=== PATIENT | female | born 1985 | race Hispanic/Latino ===

== ENCOUNTER 2017-05-25 10:40 | Emergency (ER) | payer SELFPAY ==
[2017-05-25 11:40] LABS: Bilirubin Negative (Negative); Blood, Urine Negative (Negative); Glucose, Urine (Dipstick) Negative (Negative); Ketone, Urine Negative (Negative); Nitrite Negative (Negative); Protein, Urine (Dipstick) Negative (Neg-Trace); Urobilinogen 0.2 mg/dL (0.2-1.0)
[2017-05-25 11:42] LABS: Bacteria/HPF 3+ HPF (None Seen); Hyaline Casts/LPF 0-3 HYALINE CAST LPF (0-3 Hyaline); RBC/HPF 0-3 HPF (0-3); WBC/HPF 0-3 HPF (0-3)
[2017-05-25 11:57] LABS: #Basophils 0.1 thou/uL (0.0-0.2); #Eosinphils 0.2 thou/uL (0.0-0.7); #Lymphocytes 2.8 thou/uL (1.20-3.40); #Monocytes 0.8 thou/uL (0.11-0.59); #Neutrophils 6.2 thou/uL (1.40-6.50); %Eosinophils 2.3 % (0.0-10.0); %Lymphocytes 27.6 % (21.0-51.0); %Monocytes 8.2 % (0.0-10.0); Hematocrit 44.6 % (36.0-47.0); Mean Platelet Volume 7.8 fL (7.4-10.4); Red Blood Cell (RBC) Count 4.69 mill/uL (4.20-5.40); White Blood Cell (WBC) Count 10.2 thou/uL (4.8-10.8)
[2017-05-25 12:25] LABS: ALT (SGPT) 22 U/L (8-55); AST (SGOT) 16 U/L (5-34); Alkaline Phosphatase 74 U/L (40-150); Anion Gap 10 mmol/L (10-20); BUN (Urea Nitrogen) 13 mg/dL (7.0-18.7); Bilirubin, Total 0.4 mg/dL (0.2-1.2); Calc. Creatinine Clearance 0 mL/min (70-130); Calcium 9.9 mg/dL (7.8-10.44); Carbon Dioxide 27 mmol/L (22-29); Chloride 102 mmol/L (98-107); Estimated GFR-MDRD Greater than 90; Globulin 3.2 g/dL (2.4-3.5); Lipase 17 U/L (8-78); Protein, Total 7.3 g/dL (6.0-8.3)
--- NOTE | 2017-05-25 14:49 | ULT ---
PELVIC SONOGRAM TRANSABDOMINAL AND TRANSVAGINAL IMAGING DUPLEX EVALUATION: History: Pelvic pain. FINDINGS: Urinary bladder is decompressed. The uterus has a heterogeneous echotexture and is 8.9 cm in length. Within the endometrial cavity, a tiny cystic structure is 0.7 cm diameter, correlating with 5 weeks 3 days size as a gestation. pole and yolk sac are not visible. Minimal free fluid is present within the cul-de-sac. The right ovary is 3.9 cm in length and has a n ormal appearance with good color and spectral doppler flow. Left ovary is not well visualized. IMPRESSION: Tiny cystic structure within the endometrial cavity could represent a very early gestation. No other significant abnormalities are apparent. Please consider close continued clinical and sonographic fo llow up. POS: LEE
== END 2017-05-25 15:34 | disposition home or self-care (01) ==
LOC: ERS 10:40
DX: O99.89 Other specified diseases and conditions complicating pregnancy, childbirth and the puerperium (principal); R10.32 Left lower quadrant pain; W10.9XXA Fall (on) (from) unspecified stairs and steps, initial encounter
CPT/HCPCS: 36415; 76856; 80053; 81003; 81015; 81025; 83690; 84702; 85025

== ENCOUNTER 2019-03-17 13:47 | Day surgery (SDC) | payer OTHER ==
--- NOTE | 2019-03-17 11:33 | RAD ---
XR Ankle Lt 3 View STANDARD INDICATION: Fall with ankle pain COMPARISON: None. FINDINGS: Bones: Intact. Ankle mortise: Symmetric. Talar Dome: Intact. Subtalar joint: Normal. Visualized hindfoot: Normal. Periarticular soft tissues: There is soft tissue swelling overlying the lateral aspect of the left an kle IMPRESSION: 1. No acute fracture or subluxation demonstrated. Soft tissue swelling of the lateral left ankle.
[2019-03-17 13:58] VITALS: BMI 36.6
[2019-03-17] MEDS ORDERED: Butorphanol Tartrate 1 MG/ML VIAL SLOW IVP PRN (14:23)
[2019-03-17] MEDS ORDERED: Ondansetron PF 4 MG/2 ML Vial IVP PRN (14:23)
[2019-03-17] MEDS ORDERED: hydrALAZINE 20 MG/ML VIAL SLOW IVP PRN (14:23)
[2019-03-17] MEDS ORDERED: Promethazine HCl 25 MG/ML VIAL IM PRN (14:23)
--- NOTE | 2019-03-17 14:29 | PDOC.LDHP ---
Labor and Delivery H&P Chief complaint: other HPI: 33 yo @ 36w5d by PEYTON of 04/09/19 who presents after fall. Pt was walking down stairs and was holding her baby when she slipped and fell. Her mother was with her and reports that she fell on her abdomen. Pt denies any abdominal pain. Reports some leonor funes ctx. Denies any LOF/VB. She has h/o CS x1 @ 31 weeks due to PPROM with distress. Pt has planned RCS @ 39 weeks. Pt is followed by Dr. Diaz. Current gestational age (weeks): 36 Due date: 04/09/19 Dating criteria: other (PEY[facility] per records) Grav: 5 Para: 4 OB History Details: 3 term SVDs 1 CS twins (one passed) Current complications: none Abnormal US findings: No Past Medical History: Denies Current medications: pre- vitamins Previous surgical history: low tranverse CS Allergies/Adverse Reactions: Allergies Allergy/AdvReac Type Severity Reaction Status Date / Time No Known Allergies Allergy Verified 03/17/19 13:53 Social history: none - Physical Exam Vital signs reviewed and normal: yes General: NAD Heart: RRR Lungs: nonlabored breathing Abdomen: gravid Extremeties: no edema FHT: category 1 [place] contractions every: no ctx noted - Vaginal Exam cm dilated: 1 (cephalic ) Effacement: 0% Station: -3 - OB Labs Blood type: O RH: positive Antibody Screen: negative HIV: negative RPR: negative HEPSAg: negative 1 hour GCT: positive 3 hour GTT: wnl GBS: negative Urine drug screen: not done Rubella: immune - Assessment 36w5d IUP Fall CS x1 - Plan Plan: observation in L&D, informed consent obtained -: CBC, coags, fibrinogen and US ordered. Keep in observation at this time Keep NPO. Plan for d/c home if stable in 4 hours.
[2019-03-17] MEDS ORDERED: Lactated Ringer's 1,000 ML IV SCH (14:30)
--- NOTE | 2019-03-17 15:03 | ULT ---
Limited obstetrical ultrasound for biophysical profile INDICATION: 37 week status post fall FINDINGS: There is single live intrauterine gestation in vertex presentation. Cardiac activity is not ed at 150 bpm. The tone is 2 out of 2, breathing is 2 out of 2, movement is 2 out of 2, amniotic f luid levels to 2. The placenta is on the right aspect of the fundus without evidence of previa. IMPRESSION: Biophysical profile of 8 out of 8
[2019-03-17] MEDS ORDERED: Acetaminophen 500 MG TAB PO SCH (15:15)
[2019-03-17 15:16] LABS: Hemoglobin 13.3 g/dL (12.0-16.0); Mean Corpuscular HGB CONC 34.7 g/dL (32.0-36.0); Mean Corpuscular Hemoglobin 30.5 pg (27.0-31.0); Mean Corpuscular Volume 88.1 fL (78.0-98.0); Mean Platelet Volume 8.8 fL (7.4-10.4); Platelet Count 236 thou/uL (130-400); Red Blood Cell (RBC) Count 4.35 mill/uL (4.20-5.40); White Blood Cell (WBC) Count 11.2 thou/uL (4.8-10.8)
[2019-03-17 15:25] LABS: Prothrombin Time 13.3 SEC (12.0-14.7)
[2019-03-17 15:26] LABS: PTT 30.3 SEC (22.9-36.1)
[2019-03-17 15:54] LABS: Syphilis Antibody Nonreactive (Nonreactive); Syphilis Antibody Index 0.05 S/CO (<1.00 Non-Reactive)
[2019-03-17 15:55] LABS: HBSAg Index 0.32 S/CO (0-0.99); HIV (1/2) Antibody/Antigen Non-Reactive (NonReactive); HIV 1/2 INDEX 0.08 S/CO (<1.00); Hep B Surf Ag Non-Reactive S/CO (NonReactive)
--- NOTE | 2019-03-17 15:58 | PDOC.EVN ---
Event Note - Event Note Event Note: Abruption labs wnl (KB pending), rh pos. BPP 03/29 Continue observation to complete 4 hrs and plan for d/c if stable.
[2019-03-17 16:49] LABS: Amnisure Internal Control QC ACCEPTABLE (ACCEPTABLE); Amnisure Test No Membranes Rupture (No Rupture)
--- NOTE | 2019-03-17 18:26 | PDOC.EVN ---
Event Note - Event Note Event Note: Pt doing well. Minimal ctx. Thought possible ROM, however, exam and amnisure negative. Noted to be urine. FHTs cat 1 5 hrs cont. monitoring. Labs wnl. KB send out and still pending. ED warnings reviewed. D/C home, f/u with Dr. Diaz
== END 2019-03-17 18:37 | disposition home health service (06) ==
LOC: L&D/OP 13:47 → EDSTATUS 13:50 → L&D/OP 18:37
PROVIDERS: ATTEND Obstetrics & Gynecology
DX: O9A.213 Injury, poisoning and certain other consequences of external causes complicating pregnancy, third trimester (principal); S93.402A Sprain of unspecified ligament of left ankle, initial encounter; S90.511A Abrasion, right ankle, initial encounter; Z3A.36 36 weeks gestation of pregnancy; W10.8XXA Fall (on) (from) other stairs and steps, initial encounter
CPT/HCPCS: 36415; 76819; 84112; 85027; 85384; 85460; 85610; 85730; 86780; 86850; 86900; 86901; 87340; 87389; 99284

== ENCOUNTER 2019-04-02 08:59 | Inpatient (IN) | payer OTHER ==
[2019-04-02 09:55] VITALS: BMI 37.2
[2019-04-02] MEDS ORDERED: hydrALAZINE 20 MG/ML VIAL SLOW IVP PRN ×2 (10:14→15:38)
[2019-04-02] MEDS ORDERED: Ondansetron PF 4 MG/2 ML Vial IVP PRN ×2 (10:14→13:07)
[2019-04-02] MEDS ORDERED: Promethazine HCl 25 MG/ML VIAL IM PRN ×2 (10:14→13:07)
[2019-04-02] MEDS ORDERED: CEFAZOLIN 2 GM, Admixture Fee 1 EACH in Sodium Chloride 0.9% 100 ML IVPB SCH (10:15)
[2019-04-02] MEDS ORDERED: Lactated Ringer's 1,000 ML IV SCH (10:15)
--- NOTE | 2019-04-02 10:18 | PDOC.LDHP ---
Labor and Delivery H&P HPI: 33 y/o for repeat 2nd today at 39 and 1/7 weeks. Current gestational age (weeks): 39 Due date: 04/09/19 Grav: 5 Para: 4 Current complications: none Abnormal US findings: No Current medications: pre- vitamins Previous surgical history: low tranverse CS Allergies/Adverse Reactions: Allergies Allergy/AdvReac Type Severity Reaction Status Date / Time No Known Allergies Allergy Verified 03/17/19 13:53 Social history: none - Physical Exam Vital signs reviewed and normal: yes General: NAD Heart: RRR Lungs: CTAB Abdomen: gravid Extremeties: no edema FHT: category 1 - Assessment L&D Assessment: scheduled repeat section - Plan Plan: admit to L&D, to OR for section
[2019-04-02 10:29] LABS: Hemoglobin 12.5 g/dL (12.0-16.0); Mean Corpuscular HGB CONC 32.3 g/dL (32.0-36.0); Mean Corpuscular Hemoglobin 28.4 pg (27.0-31.0); Mean Corpuscular Volume 87.8 fL (78.0-98.0); Mean Platelet Volume 9.3 fL (7.4-10.4); Platelet Count 230 thou/uL (130-400); RBC Distribution Width 13.9 % (11.5-14.5); Red Blood Cell (RBC) Count 4.41 mill/uL (4.20-5.40); White Blood Cell (WBC) Count 8.5 thou/uL (4.8-10.8)
[2019-04-02] MEDS: Bicitra 30 ML UDCUP PO SCH ×2 (11:13→11:49)
[2019-04-02 11:16] LABS: HBSAg Index 0.46 S/CO (0-0.99); Hep B Surf Ag Non-Reactive S/CO (NonReactive); Syphilis Antibody Nonreactive (Nonreactive); Syphilis Antibody Index 0.05 S/CO (<1.00 Non-Reactive)
[2019-04-02] MEDS ORDERED: MORPHINE 5 MG/10 ML PF VIAL ONE (11:54)
[2019-04-02] MEDS ORDERED: Fentanyl 100 MCG/2 ML VIAL ONE (11:54)
[2019-04-02] MEDS ORDERED: Phenylephrine HCL 10 MG/ML VIAL ONE (11:55)
[2019-04-02] MEDS ORDERED: Oxytocin 10 UNITS/ML VIAL ONE (11:55)
[2019-04-02] MEDS ORDERED: Ketorolac Tromethamine 30 MG/ML VIAL ONE (11:55)
[2019-04-02] MEDS ORDERED: ePHEDrine/0.9% NaCl/PF SYRINGE 50 mg/10 ml ONE (11:55)
[2019-04-02] MEDS ORDERED: Ondansetron PF 4 MG/2 ML Vial ONE (11:55)
[2019-04-02] MEDS ORDERED: Dexamethasone 4 mg/ml Vial ONE (12:50)
[2019-04-02] MEDS ORDERED: Naloxone HCl 0.4 mg/ml Vial IVP PRN ×2 (13:07)
[2019-04-02] MEDS ORDERED: Promethazine HCl 25 MG SUPP PR PRN (13:07)
[2019-04-02] MEDS ORDERED: Ondansetron HCl/PF 4 MG/2 ML Vial IVP PRN (13:07)
[2019-04-02] MEDS ORDERED: L&D-Morphine 4 MG/ML VIAL SLOW IVP PRN (13:07)
[2019-04-02] MEDS ORDERED: HYDROmorphone 2 MG/ML VIAL SLOW IVP PRN (13:07)
[2019-04-02] MEDS ORDERED: Ketorolac Tromethamine 30 MG/ML VIAL IVP PRN (13:07)
[2019-04-02] MEDS ORDERED: diphenhydrAMINE 50 MG/ML VIAL IVP PRN (13:07)
[2019-04-02] MEDS ORDERED: Naloxone HCl 0.4 mg/ml Vial IV PRN (13:07)
[2019-04-02] MEDS ORDERED: Meperidine HCl/PF 25 MG/ML VIAL SLOW IVP PRN (13:07)
[2019-04-02] MEDS ORDERED: Communication Order-Pharmacy FS SCH (13:15)
[2019-04-02] MEDS ORDERED: Lanolin Ointment 7 GM TUBE TOP PRN (15:38)
[2019-04-02] MEDS ORDERED: Adacel (T-DAP) 0.5 ML SYRINGE IM ONE (15:38)
[2019-04-02] MEDS ORDERED: Varicella virus, LIVE 0.5 ML VIAL SC ONE (15:38)
[2019-04-02] MEDS ORDERED: diphenhydrAMINE 25 MG CAP PO PRN (15:38)
[2019-04-02] MEDS ORDERED: Simethicone Chewable 80 MG TAB PO PRN (15:38)
[2019-04-02] MEDS ORDERED: NS / Oxytocin 40 units/1000ml 1,000 ML IV SCH (15:38)
[2019-04-02] MEDS ORDERED: Measles/Mumps/Rubella 10 MCG/0.5 ML VIAL SC ONE (15:38)
[2019-04-02] MEDS: Docusate Calcium (SURFAK) 240 MG CAP PO SCH (21:36)
[2019-04-02] MEDS: Ferrous Sulfate 325 MG TAB PO SCH (21:41)
[2019-04-03] MEDS ORDERED: HYDROcodone/Acetaminophen 5/325 mg Tablet PO PRN ×2 (01:15)
[2019-04-03 05:32] LABS: Hemoglobin 11.6 g/dL (12.0-16.0); Mean Corpuscular HGB CONC 33.3 g/dL (32.0-36.0); Mean Corpuscular Hemoglobin 29.7 pg (27.0-31.0); Mean Corpuscular Volume 89.4 fL (78.0-98.0); Mean Platelet Volume 9.1 fL (7.4-10.4); Platelet Count 204 thou/uL (130-400); RBC Distribution Width 13.9 % (11.5-14.5); Red Blood Cell (RBC) Count 3.91 mill/uL (4.20-5.40); White Blood Cell (WBC) Count 11.7 thou/uL (4.8-10.8)
[2019-04-03] MEDS ORDERED: Sodium Chloride 0.9% 10 ML ONE (07:41)
[2019-04-03] MEDS: Prenatal Vitamin 1 TAB PO SCH (09:05)
[2019-04-03] MEDS: Docusate Calcium (SURFAK) 240 MG CAP PO SCH ×2 (09:06→21:16)
[2019-04-03] MEDS: Ferrous Sulfate 325 MG TAB PO SCH ×2 (09:41→23:28)
[2019-04-03] MEDS: Ibuprofen 800 MG TAB PO SCH ×2 (14:05→21:16)
--- NOTE | 2019-04-03 14:34 | PDOC.PP ---
Post Progress Note Post Day #: 1 PO intake tolerated: yes Flatus: yes Ambulation: yes Vital Signs (12 hours) Temp Pulse Resp BP Pulse Ox 04/03/19 12:59 98.1 F 66 20 99/57 L 04/03/19 08:13 98.4 F 63 20 97/55 L 99 04/03/19 05:45 97.9 F 65 16 105/55 L Weight Weight 197 lb - Physical Examination General: NAD Cardiovascular: no m/r/g, RRR Respiratory: clear to auscultation bilaterally, non-labored breathing Abdominal: + bowel sounds, lochia, no distention, appropriately TTP Extremities: negative homans (B) Skin: CS incision dry & intact, no rash Neurological: no gross focal deficits Psychiatric: A&Ox3, normal affect Result Diagrams: 04/03/19 05:22 Additional Labs: Post Labs Blood Type O POSITIVE 04/02/19 09:56 Hep Bs Antigen Non-Reactive S/CO (NonReactive) 04/02/19 09:56
[2019-04-04] MEDS: Ibuprofen 800 MG TAB PO SCH ×3 (05:45→21:25)
[2019-04-04] MEDS: Ferrous Sulfate 325 MG TAB PO SCH ×2 (07:30→21:26)
[2019-04-04] MEDS: Prenatal Vitamin 1 TAB PO SCH (09:04)
[2019-04-04] MEDS: Docusate Calcium (SURFAK) 240 MG CAP PO SCH ×2 (09:04→21:25)
--- NOTE | 2019-04-04 13:32 | PDOC.PP ---
Post Progress Note Post Day #: 2 PO intake tolerated: yes Flatus: yes Ambulation: yes Vital Signs (12 hours) Temp Pulse Resp BP Pulse Ox 04/04/19 11:51 98.0 F 83 20 137/97 H 04/04/19 08:22 97.7 F 62 20 109/76 97 Weight Weight 197 lb - Physical Examination General: NAD Cardiovascular: no m/r/g, RRR Respiratory: clear to auscultation bilaterally, non-labored breathing Abdominal: + bowel sounds, lochia, no distention Extremities: negative homans (B) Skin: CS incision dry & intact, no rash Neurological: no gross focal deficits Psychiatric: A&Ox3, normal affect Result Diagrams: 04/03/19 05:22 Additional Labs: Post Labs Blood Type O POSITIVE 04/02/19 09:56 Hep Bs Antigen Non-Reactive S/CO (NonReactive) 04/02/19 09:56
[2019-04-05] MEDS: Ibuprofen 800 MG TAB PO SCH (05:23)
[2019-04-05 08:24] VITALS: BP 130/80; TEMP 98.3
[2019-04-05] MEDS: Ferrous Sulfate 325 MG TAB PO SCH (09:11)
[2019-04-05] MEDS: Prenatal Vitamin 1 TAB PO SCH (09:40)
[2019-04-05] MEDS: Docusate Calcium (SURFAK) 240 MG CAP PO SCH (09:40)
== END 2019-04-05 13:10 | disposition home or self-care (01) | DRG 788 ==
LOC: L&D 08:59 → 3SW 15:52
PROVIDERS: ADMIT Obstetrics & Gynecology; ATTEND Obstetrics & Gynecology
PROC: 10D00Z1 Extraction of Products of Conception, Low, Open Approach (ICD-10-PCS; principal; 2019-04-02)
DX: O34.211 Maternal care for low transverse scar from previous cesarean delivery (principal); O77.0 Labor and delivery complicated by meconium in amniotic fluid; Z3A.39 39 weeks gestation of pregnancy; Z37.0 Single live birth
CPT/HCPCS: 36415; 51702; 85027; 86780; 86850; 86900; 86901; 87340; 90715; 90716; J0690; J1100; J1885; J2274; J2370; J2405; J2590; J3010; J3490

== ENCOUNTER 2020-03-13 08:53 | Emergency (ER) | payer OTHER ==
[2020-03-13] MEDS ORDERED: Ketorolac Tromethamine 30 MG/ML VIAL ONE (09:22)
[2020-03-13] MEDS ORDERED: Acetaminophen 500 MG TAB ONE (09:22)
[2020-03-13 09:40] LABS: #Eosinphils 0.1 thou/uL (0.0-0.7); #Lymphocytes 1.1 thou/uL (1.20-3.40); #Monocytes 0.5 thou/uL (0.11-0.59); #Neutrophils 5.6 thou/uL (1.40-6.50); %Basophils 0.6 % (0.0-1.0); %Eosinophils 1.8 % (0.0-10.0); %Lymphocytes 14.3 % (21.0-51.0); %Monocytes 7.3 % (0.0-10.0); Hemoglobin 15.6 g/dL (12.0-16.0); Mean Corpuscular HGB CONC 32.4 g/dL (32.0-36.0); Mean Corpuscular Volume 92.7 fL (78.0-98.0); Mean Platelet Volume 8.5 fL (7.4-10.4); Platelet Count 219 thou/uL (130-400); RBC Distribution Width 12.7 % (11.5-14.5); Red Blood Cell (RBC) Count 5.21 mill/uL (4.20-5.40); White Blood Cell (WBC) Count 7.4 thou/uL (4.8-10.8)
[2020-03-13 09:49] LABS: BHCG - Serum Negative (NEGATIVE); Pregs Control Background? CLEAR/WHITE (CLR/WHITE); Pregs Control Bar Appear? YES (CONTROL BAR)
[2020-03-13 10:15] LABS: ALT (SGPT) 58 U/L (8-55); AST (SGOT) 46 U/L (5-34); Albumin 4.5 g/dL (3.5-5.0); Alkaline Phosphatase 99 U/L (40-110); Anion Gap 15 mmol/L (10-20); BUN (Urea Nitrogen) 11 mg/dL (7.0-18.7); Bilirubin, Total 0.4 mg/dL (0.2-1.2); CK (CPK) 56 U/L (29-168); Calc. Creatinine Clearance 0 mL/min (70-130); Calcium 9.5 mg/dL (7.8-10.44); Carbon Dioxide 18 mmol/L (22-29); Chloride 107 mmol/L (98-107); Estimated GFR-MDRD 72; Globulin 3.9 g/dL (2.4-3.5); Glucose 123 mg/dL (70-105); Magnesium 1.9 mg/dL (1.6-2.6); Potassium 3.9 mmol/L (3.5-5.1); Protein, Total 8.4 g/dL (6.0-8.3); Sodium 136 mmol/L (136-145)
[2020-03-14 11:45] LABS: SARS-CoV-2 MS2 Positive; SARS-CoV-2 N Gene Negative; SARS-CoV-2 S Gene Negative; SARS-CoV-2 by NAA Not Detected (NotDetected); SARS-CoV-2 orf1ab Negative
== END 2020-03-13 11:45 | disposition home or self-care (01) ==
LOC: ERS 08:53
DX: R11.0 Nausea (principal); R19.7 Diarrhea, unspecified; Z20.828 Contact with and (suspected) exposure to other viral communicable diseases
CPT/HCPCS: 80053; 82550; 83735; 84703; 85025; 87635; 93005; 96361; 96374; J1885; U0003

== ENCOUNTER 2021-04-03 15:05 | Emergency (ER) | payer MEDICAID ==
[2021-04-03] MEDS ORDERED: Ketorolac Tromethamine 30 MG/ML VIAL ONE (16:13)
== END 2021-04-03 16:32 | disposition home or self-care (01) ==
LOC: ERS 15:05
DX: M79.675 Pain in left toe(s) (principal)
CPT/HCPCS: 96372; 99283; J1885

== ENCOUNTER 2022-01-11 16:58 | Emergency (ER) | payer MEDICAID, SELFPAY ==
[2022-01-11 17:20] LABS: #Basophils 0.1 thou/uL (0.0-0.2); #Eosinphils 0.3 thou/uL (0.0-0.7); #Lymphocytes 3.5 thou/uL (1.20-3.40); #Monocytes 0.8 thou/uL (0.11-0.59); #Neutrophils 6.9 thou/uL (1.40-6.50); %Basophils 0.7 % (0.0-1.0); %Eosinophils 2.2 % (0.0-10.0); %Lymphocytes 30.3 % (21.0-51.0); %Monocytes 6.9 % (0.0-10.0); %Neutrophils 59.9 % (42.0-75.0); Hemoglobin 14.1 g/dL (12.0-16.0); Mean Corpuscular HGB CONC 31.8 g/dL (32.0-36.0); Mean Corpuscular Volume 97.6 fL (78.0-98.0); Mean Platelet Volume 7.9 fL (7.4-10.4); Platelet Count 220 thou/uL (130-400); RBC Distribution Width 12.4 % (11.5-14.5); Red Blood Cell (RBC) Count 4.56 mill/uL (4.20-5.40); White Blood Cell (WBC) Count 11.4 thou/uL (4.8-10.8)
[2022-01-11 17:42] LABS: BHCG - Serum Negative (NEGATIVE); Pregs Control Background? CLEAR/WHITE (CLR/WHITE); Pregs Control Bar Appear? YES (CONTROL BAR)
[2022-01-11 17:47] LABS: ALT (SGPT) 32 U/L (8-55); AST (SGOT) 17 U/L (5-34); Albumin 3.5 g/dL (3.5-5.0); Alkaline Phosphatase 75 U/L (40-110); Anion Gap 9 mmol/L (10-20); BUN (Urea Nitrogen) 12 mg/dL (7.0-18.7); Bilirubin, Total 0.2 mg/dL (0.2-1.2); Calc. Creatinine Clearance 0 mL/min (70-130); Calcium 9.1 mg/dL (7.8-10.44); Carbon Dioxide 29 mmol/L (22-29); Chloride 104 mmol/L (98-107); Globulin 2.6 g/dL (2.4-3.5); Glucose 112 mg/dL (70-105); Lipase 23 U/L (8-78); Potassium 4.4 mmol/L (3.5-5.1); Protein, Total 6.1 g/dL (6.0-8.3); Sodium 138 mmol/L (136-145)
[2022-01-11 20:04] LABS: Bacteria/HPF None Seen HPF (None Seen); Bilirubin Negative (Negative); Blood, Urine Negative (Negative); Calcium Oxalate Crystals 1+ HPF (None Seen); Clarity Turbid (Clear); Glucose, Urine (Dipstick) Normal (Negative); Ketone, Urine Negative (Negative); Leukocyte 25 Leu/uL (Negative); Nitrite Negative (Negative); Protein, Urine (Dipstick) Negative (Neg-Trace); RBC/HPF 0-3 HPF (0-3); Specific Gravity, Urine 1.026 (1.002-1.036); Urobilinogen Normal mg/dL (Less than 2); WBC/HPF 0-3 HPF (0-3); pH, Urine 5.5 (5.0-9.0)
== END 2022-01-11 20:34 | disposition home or self-care (01) ==
LOC: ERS 16:58
DX: R10.30 Lower abdominal pain, unspecified (principal)
CPT/HCPCS: 36415; 80053; 81003; 81015; 83690; 84703; 85025; 99284

== ENCOUNTER 2022-04-05 19:34 | Emergency (ER) | payer SELFPAY | END 2022-04-05 21:10 | disposition home or self-care (01) | LOC: ERS 19:34 | DX: S93.602A Unspecified sprain of left foot, initial encounter (principal); W17.2XXA Fall into hole, initial encounter ==